=== PATIENT | male | born 1955 | race American Indian/Alaskan Native ===

== ENCOUNTER 2017-04-08 23:02 | Emergency (ER) | payer SELFPAY ==
--- NOTE | 2017-04-08 23:31 | C.PDOC ---
History Of Present Illness pt presents with some abdominal discomfort, which has since resolved and wanted his bp checked. No cp, sob, palpitations. Speaking in complete sentences. Time Seen by Provider: 04/08/17 23:30 Chief Complaint (Nursing): Abdominal Pain History Per: Patient History/Exam Limitations: no limitations Onset/Duration Of Symptoms: Hrs Current Symptoms Are (Timing): Still Present Context: Other Severity: Moderate Pain Scale Rating Of: 4 Location Of Pain/Discomfort: Diffuse Radiation Of Pain To:: None Quality Of Discomfort: Dull Associated Symptoms: denies: Fever, Chills, Nausea Exacerbating Factors: None Alleviating Factors: None Last Bowel Movement: Today Recent travel outside of the [place]: No Additional History Per: Patient Past Medical History Reviewed: Historical Data, Nursing Documentation, Vital Signs Vital Signs: Last Vital Signs Temp 97.9 F 04/09/17 00:47 Pulse 77 04/09/17 00:47 Resp 20 04/09/17 00:47 BP 112/71 04/09/17 00:47 Pulse Ox 100 04/09/17 03:03 - Medical History PMH: HTN, Hyperlipidemia Family History: States: No Known Family Hx - Social History Hx Alcohol Use: No Hx Substance Use: No - Immunization History Hx Tetanus Toxoid Vaccination: No Hx Influenza Vaccination: No Hx Pneumococcal Vaccination: No Review Of Systems Constitutional: Negative for: Fever, Chills Eyes: Negative for: Redness ENT: Negative for: Throat Pain Cardiovascular: Negative for: Chest Pain, Palpitations Respiratory: Positive for: Shortness of Breath Gastrointestinal: Positive for: Abdominal Pain. Negative for: Nausea, Vomiting Genitourinary: Negative for: Dysuria Musculoskeletal: Negative for: Back Pain Skin: Negative for: Rash Neurological: Negative for: Weakness Psych: Negative for: Anxiety Physical Exam - Physical Exam Appears: Non-toxic, No Acute Distress Skin: Warm, Dry Head: Normacephalic Eye(s): bilateral: Normal Inspection Oral Mucosa: Moist Neck: Supple Chest: Symmetrical Cardiovascular: Rhythm Regular (tachy) Respiratory: Rales (few at bases), No Rhonchi, No Wheezing Gastrointestinal/Abdominal: Bowel Sounds (tympanic to percussion), Soft, No Tenderness, Distention Back: No CVA Tenderness Extremity: Normal ROM Extremity: Bilateral: Atraumatic, Normal Color And Temperature, Normal ROM Pulses: Left Dorsalis Pedis: Normal, Right Dorsalis Pedis: Normal Neurological/Psych: Oriented x3, Normal Speech, Normal Cognition Gait: With Assistance (uses cane) ED Course And Treatment - Laboratory Results Result Diagrams: 04/08/17 23:51 04/08/17 23:51 ECG: Interpreted By Me, Viewed By Me ECG Rhythm: Sinus Tachycardia (125), Nonspecific Changes O2 Sat by Pulse Oximetry: 100 Pulse Ox Interpretation: Normal - Radiology CXR: Interpreted by Me, Viewed By Me CXR Interpretation: Yes: Other (mild vasc congestion). No: Infiltrates, Fracture, Cardiomegaly Reevaluation Time: 05:46 Reassessment Condition: Improved Disposition Counseled Patient/Family Regarding: Studies Performed, Diagnosis, Need For Followup - Disposition Referrals: [facility] [Outside] [facility] [Outside] Disposition: HOME/ ROUTINE Disposition Time: 23:31 Condition: FAIR Instructions: Abdominal Pain (ED), Gas and Bloating (ED) Forms: [facility] (Maldivian) - Clinical Impression Clinical Impression: Abdominal pain
[2017-04-08] MEDS ORDERED: Aspirin 325 mg EC Tablets PO STA (23:41)
[2017-04-08] MEDS ORDERED: Aspirin 325 mg EC Tablets PO ONE (23:54)
[2017-04-08 23:56] LABS: BASO % 0.7 % (0.0-2.0); EOS # 0.1 K/uL (0.0-0.7); EOS % 1.1 % (0.0-4.0); HEMATOCRIT 35.5 % (35.0-51.0); LYMPH # 1.3 K/uL (1.0-4.3); LYMPH % 22.1 % (20.0-40.0); MEAN CELL VOLUME 77.5 fL (80.0-94.0); MEAN CORPUSCULAR HEMOGLOBIN 26.1 pg (27.0-31.0); MEAN CORPUSCULAR HGB CONC 33.6 g/dL (33.0-37.0); MEAN PLATELET VOLUME 7.7 fL (7.2-11.7); MONO # 0.4 K/uL (0.0-0.8); MONO % 6.6 % (0.0-10.0); RED CELL DISTRIBUTION WIDTH 14.5 % (11.5-14.5); WHITE BLOOD COUNT 5.7 K/uL (4.8-10.8)
[2017-04-09 00:06] LABS: CHLORIDE 103 mmol/L (98-107); POTASSIUM 3.8 mmol/L (3.6-5.2); SODIUM 135 mmol/L (132-148)
[2017-04-09 00:08] LABS: GFR AFRICAN-AMERICAN > 60; INR 1.2
[2017-04-09 00:09] LABS: ALKALINE PHOSPHATASE 94 U/L (38-126); ALT/SGPT 44 U/L (21-72); AST/SGOT 24 U/L (17-59); BILIRUBIN,TOTAL 0.3 mg/dL (0.2-1.3); BLOOD UREA NITROGEN 22 mg/dL (9-20); CALCIUM 8.5 mg/dl (8.6-10.4); CARBON DIOXIDE 22 mmol/L (22-30); GLUCOSE,RANDOM 169 mg/dL (75-110); TOTAL PROTEIN 7.7 g/dL (6.3-8.3)
[2017-04-09 00:49] LABS: RBC URINE 1 /hpf (0-3); URINE BILIRUBIN NEGATIVE (NEGATIVE); URINE BLOOD NEGATIVE (NEGATIVE); URINE COLOR Yellow (YELLOW); URINE GLUCOSE (UA) 1+ mg/dL (Normal); URINE KETONE NEGATIVE (NEGATIVE); URINE LEUKOCYTE ESTERASE NEG Leu/uL (Negative); URINE PROTEIN NEGATIVE (NEGATIVE); URINE UROBILINOGEN NORMAL mg/dL (0.2-1.0); WBC URINE < 1 /hpf (0-5)
[2017-04-09 03:04] VITALS: O2SAT 100
[2017-04-09 05:51] VITALS: BP 117/67; PULSE 64; RESP 16; TEMP 98.3
--- NOTE | 2017-04-09 09:11 | RAD ---
PROCEDURE: CHEST RADIOGRAPH, 1 VIEW HISTORY: chest pain COMPARISON: None available. FINDINGS: LUNGS: Mild venous congestion. Bilateral hilar prominence. Biapical pleural thickening with upper lobe granulomatous changes. Bibasilar breast and nipple shadows. PLEURA: No pneumothorax or pleural fluid seen. CARDIOVASCULAR: Normal. OSSEOUS STRUCTURES: Degenerative changes in the spine and shoulders. VISUALIZED UPPER ABDOMEN: Normal. OTHER FINDINGS: None. IMPRESSION: Mild venous congestion. Bilateral hilar prominence. Biapical pleural thickening with upper lobe granulomatous changes. Bibasilar breast and nipple shadows.
--- NOTE | 2017-04-09 21:36 | CARD ---
APPROVED REPORT EKG Measurement Heart [id number] <Conclusion> Supraventricular tachcyardia Left anterior fascicular block Septal infarct, age undetermined Abnormal ECG
== END 2017-04-09 05:57 | disposition home or self-care (01) ==
LOC: C.ER 23:02
DX: R10.9 Unspecified abdominal pain (principal); I10 Essential (primary) hypertension; E78.5 Hyperlipidemia, unspecified